=== PATIENT | female | born 1980 | race Caucasian/White ===

== ENCOUNTER → 2016-10-05 | Day surgery (SDC) | payer OTHER ==
[~2016-10-05] VITALS: Ht 165.1 cm; Wt 59.0 kg
--- NOTE | 2016-10-05 14:38 | Operative Report ---
Operative/Inv Procedure Report Surgery Date: 10/05/16 Name of Procedure: suction D+c Pre-Operative Diagnosis: missed Post-Operative Diagnosis: same Estimated Blood Loss: less than 50ml Surgeon/Crab Meat Processor: LUTHER FITZPATRICK,ARISTIDES Fowler Anesthesia: tiva Specimens: poc to path for chromosomes Complications: none Condition: good Operative/Procedure Note Note: The patient was taken to the operating room and anesthesia was induced the patient was prepped and draped in usual sterile fashion a single-tooth tenaculum was placed on the anterior lip of the cervix the cervix was dilated with a Hegar dilator a curved suction curette was placed through the endocervical canal with a corkscrew motion suction was applied moderate amount of products of conception was removed. This was followed by a sharp curettage to a good rasp in all 4 quadrants once again the suction curette was passed PRODUCTS of conception were sent to pathology for examination. Patient was given Pitocin the single-tooth tenaculum was removed examination showed the uterus to be firm hemostasis was good patient was then moved to recovery room in good condition Discharge Disposition: Same Day Admissions
== END ==
LOC: STS 01:16
DX: O02.1 Missed abortion (principal); F17.200 Nicotine dependence, unspecified, uncomplicated; Z85.6 Personal history of leukemia
CPT/HCPCS: J2250; J2405